=== PATIENT | male | born 1975 | race Caucasian/White ===

== ENCOUNTER → 2019-07-23 12:05 | Outpatient (BNVA) | payer BC, SELFPAY | PROVIDERS: Family Provider Family Medicine; PCP Family Medicine; Visit Provider Family Medicine | DX: Z00.00 Encounter for general adult medical examination without abnormal findings (principal); I49.1 Atrial premature depolarization | CPT/HCPCS: G0328 ==

== ENCOUNTER → 2019-07-24 09:12 | Outpatient (BNVA) | payer BC, SELFPAY | PROVIDERS: Family Provider Family Medicine; PCP Family Medicine; Visit Provider Family Medicine | DX: Z00.00 Encounter for general adult medical examination without abnormal findings (principal); I49.1 Atrial premature depolarization | CPT/HCPCS: 80053; 80061; 84153; 85025 ==

== ENCOUNTER → 2019-09-03 09:23 | Outpatient (BNVA) | payer BC, SELFPAY | PROVIDERS: Family Provider Family Medicine; PCP Family Medicine; Visit Provider Family Medicine | DX: R89.9 Unspecified abnormal finding in specimens from other organs, systems and tissues (principal) | CPT/HCPCS: 80061 ==

== ENCOUNTER → 2020-02-11 14:46 | Outpatient (BNVA) | payer BC, SELFPAY | PROVIDERS: Family Provider Family Medicine; PCP Family Medicine; Visit Provider Family Medicine | DX: Z20.828 Contact with and (suspected) exposure to other viral communicable diseases (principal); R43.0 Anosmia | CPT/HCPCS: 87635 ==

== ENCOUNTER → 2021-06-19 09:08 | Outpatient (BNVA) | payer BC, SELFPAY | PROVIDERS: Family Provider Family Medicine; PCP Family Medicine; Visit Provider Family Medicine | DX: Z00.00 Encounter for general adult medical examination without abnormal findings (principal); T78.40XA Allergy, unspecified, initial encounter; Z80.42 Family history of malignant neoplasm of prostate | CPT/HCPCS: 80053; 80061; 85025; G0103 ==

== ENCOUNTER → 2021-06-24 07:46 | Outpatient (BNVA) | payer BC, SELFPAY | PROVIDERS: Family Provider Family Medicine; PCP Family Medicine; Visit Provider Family Medicine | DX: Z00.00 Encounter for general adult medical examination without abnormal findings (principal); T78.40XA Allergy, unspecified, initial encounter; Z80.42 Family history of malignant neoplasm of prostate | CPT/HCPCS: G0103 ==

== ENCOUNTER → 2023-04-06 09:10 | Outpatient (BNVA) | payer BC, SELFPAY | PROVIDERS: Family Provider Family Medicine; PCP Family Medicine; Visit Provider Family Medicine | DX: Z00.00 Encounter for general adult medical examination without abnormal findings (principal); Z80.42 Family history of malignant neoplasm of prostate | CPT/HCPCS: 80053; 80061; 84439; 84443; 85025; G0103 ==

== ENCOUNTER → 2024-06-21 09:25 | Outpatient (BNVA) | payer BC, SELFPAY | PROVIDERS: Family Provider Family Medicine; PCP Family Medicine; Visit Provider Family Medicine | DX: Z00.00 Encounter for general adult medical examination without abnormal findings (principal); I49.1 Atrial premature depolarization; Z80.42 Family history of malignant neoplasm of prostate | CPT/HCPCS: 80053; 80061; 85025; G0103 ==